=== PATIENT | male | born 1960 ===

== ENCOUNTER 2016-07-29 09:16 | Emergency (ER) | payer SELFPAY | END 2016-07-29 10:28 | disposition home or self-care (01) | LOC: ER 09:16 | DX: S16.1XXA Strain of muscle, fascia and tendon at neck level, initial encounter (principal); S80.02XA Contusion of left knee, initial encounter; S80.01XA Contusion of right knee, initial encounter; S60.511A Abrasion of right hand, initial encounter; J44.9 Chronic obstructive pulmonary disease, unspecified; F17.200 Nicotine dependence, unspecified, uncomplicated; V89.9XXA Person injured in unspecified vehicle accident, initial encounter | CPT/HCPCS: 71010; 72100; 72125; 73562-LT; 73562-RT; 96372; 99284; A9270-GY; J1885 ==